=== PATIENT | female | born 1950 | race Caucasian/White ===

== ENCOUNTER → 2016-06-09 | Day surgery (SDC) | payer MEDICARE ==
[~2016-06-09] MED LIST: ACETAMINOPHEN 325 MG TAB ONE; ALBI1INJ SQ; APREPITANT 40 MG CAP ONE; ASPI325T PO; ATOR20TA15 PO; BUPIVACAINE HCL PF 0.5% 10 ML VIAL ONE; CIPR-9 PO; CLINDAMYCIN PHOS 900 MG/6 ML VIAL ONE; GLIM2TAB PO; LACTATED RINGER'S 1000 ML INJ 1,000 ML ONE; LIDOCAINE 1%/EPINEPHrine 1:100,000 SOLN 20 ML VIAL ONE; MIDAZOLAM HCL 2 MG/2 ML VIAL ONE; ONDANSETRON HCL 4 MG/2 ML VIAL IV PUSH ONE; PROMETHAZINE INJ 25 MG/ML VIAL ONE; SODIUM CHLORIDE 0.9% 20 ML VIAL ONE; ceFAZolin INJ 1,000 MG VIAL ONE
--- NOTE | 2016-06-09 12:26 | TN ---
cc: BRINDA CHAO DATE OF SURGERY: 06/09/2016 PRINCIPAL DIAGNOSIS Palpable right chest wall nodule as well as right chest wall implant displacement following reconstruction for right breast cancer. PROCEDURE PERFORMED Excisional biopsy of right chest wall nodule. SURGEON Brinda Chao MD ANESTHESIA General via LMA device. INDICATION The patient is a 65-year-old female status post bilateral mastectomy with immediate reconstruction in 2014 for right breast cancer. She subsequently developed a palpable nodule on the right chest wall and had excisional biopsy in November of last year which demonstrated fat necrosis. She developed a new palpable nodule in the 7 o'clock location of the right chest wall which was a 1-cm hypoechoic nodule by ultrasound and also developed progressive inferior displacement of her implant. She now presents for plastic modification of her right chest wall implant as well as excisional biopsy of the palpable nodule. FINDINGS AT THE TIME OF SURGERY A fibrotic nodule adjacent to the implant capsule was identified which was approximately 1 cm in size. PROCEDURE PERFORMED After informed consent was obtained and site verification was performed, the patient was brought to the major operating room where she underwent general anesthesia via LMA device. She was given a single dose of IV clindamycin due to PENICILLIN ALLERGY and sequential compression hose were placed. The right chest wall and upper arm were prepped and draped in sterile fashion. An incision was created overlying the palpable nodule to include an ellipse of skin that was approximately 1 cm in size. Further dissection was performed using electrocautery until the palpable nodule was identified on the chest wall implant capsule. The nodule was excised using electrocautery dissection and the implant remained intact throughout the dissection, although there was a 1 cm area of capsule which required closure. The nodule was marked with a single stitch on the posterior margin and two sutures on the superior margin and was sent for permanent pathologic evaluation. Good hemostasis was noted and further reshaping and plastic reconstruction was performed by Dr. Mccloud which will be included on a separate dictation. MD VANESSA Moser/SUMI /12:04 PM /12:11 PM
--- NOTE | 2016-06-09 14:06 | MP ---
cc: ARON MCCLOUD M.D. DATE OF SURGERY: 06/09/2016 PREOPERATIVE DIAGNOSIS Status post bilateral breast reconstruction, right side implant displacement. POSTOPERATIVE DIAGNOSIS Status post bilateral breast reconstruction, right side implant displacement. OPERATION Right breast implant exchange with new silicone gel Inspira SRX 750 implant, partial capsulectomy and AlloMax graft reconstruction with repositioning of the implant and reshaping of the breast. SURGEON Dr. Mccloud. ANESTHESIA General. INDICATIONS 65-year-old white female with multiple previous surgeries, history of right breast cancer, bilateral mastectomy, bilateral reconstruction, currently with silicone gel 750 cc SRX Inspira implants. The right implant has sagged through for approximately 1 inch compared to the left through the inframammary fold so she wishes to have it moved more medial as the anterior axillary fold area is more full than the left and is causing discomfort to the patient. The patient also has a small palpable nodule in the lower outer quadrant of the breast that is being operated by Dr. Rahman today. That surgery will be dictated separately. The patient underwent explanation of the repositioning of the implant and reshaping of the breast and use of AlloMax graft to support and rebuild inframammary fold and the anterior axillary line fold. She is aware of general risks and complications including possibility of bleeding, infection, seroma, wound healing problems, possible loss of reconstruction, etc. and is willing to go ahead with the surgery. PROCEDURE The patient was brought to the operating room, was given supine position. Anesthesia was started. Prep and drape was done. IV antibiotic had been given. The time-out was called and completed and the first part of the surgery was completed by Dr. Rahman who removed the palpable lump in the lower outer quadrant through a straight skin incision. The lump was found to be attached to the capsule and a portion of the capsule was removed along with the lump leaving a small hole in the capsule. This area was left open for me to continue my part. The surgery was started by removing the lower horizontal scar that is about 1 inch above the actual inframammary fold. The scar was excised and discarded. The capsule was opened and the existing implant was removed. The implant appeared clean. The cavity was clean. The inside of the cavity did not have any suspicious areas either. The capsule is fairly thin. A wide strip of capsule from the anterior axillary line going outwards and in the existing inframammary fold up to the new anticipated position of the inframammary fold was removed in the area. The portions of the capsule anteriorly were also removed to provide more attaching surface to the AlloMax eventually. The hemostasis was excellent. The AlloMax 8 x 16 surgical graft was used, serial number [id number]. The graft was hydrated and was placed alongside the anterior axillary line, rounded off into the inframammary fold towards the medial corner of the breast and it was tacked into place with 2-0 Vicryl sutures defining the new position of the inframammary fold and the anterior axillary line as well. On the lateral aspect the redundant extra space was closed with the suture combining the AlloMax and the posterior chest wall and the flap itself. The lateral outer corner was rounded off to provide a better shape. The entrance to the breast pocket was prepared with 2-0 Vicryl open sutures. The implant selected is identical implant replacement SRX 750, serial number [id number]. Implant was placed in the pocket, oriented properly with the posterior tab position and the borders were smoothed out. The AlloMax was smoothed over the lower pole of the implant as well. It did not need to be tacked anywhere else. The 2-0 Vicryl sutures were tied. The rest of the closure was completed with 4-0 Vicryl and 4-0 Prolene. The lower outer corner of the flap needed to be excised in order to provide a proper contour and takeout the triangular deformity. All the tissue removed was sent for pathology examination as the right side is the breast cancer side. All the areas were cleaned, dried. Sterile dressing was applied. The patient remained stable. Intraoperative blood loss was minimal, less than 5-10 ccs. No complications. signed, not fully reviewed MD BARBARA Brooks/SMUI /1:08 PM /1:26 PM UYEN
== END | disposition home or self-care (01) ==
LOC: ESDC 09:39
PROVIDERS: ATTEND Plastic Surgery
DX: N64.1 Fat necrosis of breast (principal); Z85.3 Personal history of malignant neoplasm of breast; E11.9 Type 2 diabetes mellitus without complications; Z79.84 Long term (current) use of oral hypoglycemic drugs
CPT/HCPCS: 00400; 00402; 15777; 19120; 19380; 82948; 88305; C1789; J0690; J2250; J2405; J2550; J3010; J7120; J8501; Q4100